=== PATIENT | female | born 1980 | race African-American/Black ===

== ENCOUNTER 2020-01-22 13:42 | Outpatient (CLI) | payer BC, SELFPAY ==
--- NOTE | ~2020-01-22 | MM_ITS ---
EXAMINATION: MM diagnostic brain BI w el HISTORY: Palpable lump of the right breast TECHNIQUE: Craniocaudal, mediolateral, and mediolateral oblique 3-D tomosynthesis images of the breas ts were performed and synthetic 2-D images were generated. CAD analysis was submitted and interpreted . COMPARISON: None, baseline BREAST PARENCHYMAL COMPOSITION: There are scattered areas of fibroglandular density. FINDINGS: Right breast: There is subtle focal asymmetry in the upper-outer quadrant of the right breast. No mitch picious calcification or architectural distortion are identified. No specific mammographic correlate is identified for the reported palpable abnormality of the right b reast. Left breast: There is no evidence of suspicious mass, calcification, or architectural distorti on to suggest malignancy. IMPRESSION: 1. Focal asymmetry in the upper outer quadrant of the right breast but no mammographic correlate iden tified for the reported palpable abnormality of concern. 2. Recommend targeted ultrasound in the upper outer quadrant of the right breast and in the area of c linical interest. BI-RADS Category 0: Incomplete: Needs additional imaging evaluation. Reviewed, dictated and finalized at location [facility]. TER MECHANIC IMPRESSION: 1. Focal asymmetry in the upper outer quadrant of the right breast but no mammo graphic correlate identified for the reported palpable abnormality of concern. 2. Recommend targeted ultrasound in the upper outer quadrant of the right breas t and in the area of clinical interest. BI-RADS Category 0: Incomplete: Needs additional imaging evaluation.
== END 2020-01-22 13:43 | disposition home or self-care (01) ==
PROVIDERS: Visit Provider Obstetrics & Gynecology
DX: N63.10 Unspecified lump in the right breast, unspecified quadrant (principal); R92.8 Other abnormal and inconclusive findings on diagnostic imaging of breast
CPT/HCPCS: 77062; 77066; G0279

== ENCOUNTER 2020-02-02 11:37 | Outpatient (CLI) | payer BC, SELFPAY ==
--- NOTE | ~2020-02-02 | US_ITS ---
US breast RT limited DATE: 02/02/2020 12:11 INDICATION: Right breast lump. Focal asymmetry reported in upper outer quadrant right breast on 01/21 diagnostic mammogram TECHNIQUE: Real-time imaging of the upper outer quadrant of the right breast was performed, with colo r flow imaging. COMPARISON: 01/22/2020 bilateral diagnostic digital mammogram FINDINGS: At 9:00 14 cm from the nipple is a benign appearing 3.5 x 4.8 mm lymph node. No suspicious mass or shadowing is evident. IMPRESSION: BI-RADS Category 2: Benign Recommendation: Routine annual mammographic screening Reviewed, dictated and finalized at [facility]. Reviewed, dictated and finalized at location [facility]. [employer]ATION AND REPAIR TECHNICIAN
== END 2020-02-02 11:38 | disposition home or self-care (01) ==
PROVIDERS: Visit Provider Obstetrics & Gynecology
DX: N63.10 Unspecified lump in the right breast, unspecified quadrant (principal); R92.8 Other abnormal and inconclusive findings on diagnostic imaging of breast
CPT/HCPCS: 76642